=== PATIENT | female | born 1970 | race Caucasian/White ===

== ENCOUNTER → 2016-10-29 | Outpatient (CLI) | payer OTHER ==
[~2016-10-29] MED LIST: ALBU1NEB10 INH; ALBUAER2 INH; BUDE0.253 NEB; CALC500C70 PO; DICY10CA55 PO; EFFSR150 PO; EFFSR75 PO; EPP3/2 IM; MELO15TA4 PO; ONDA8TAB6 PO; PANT40TA PO; POLY335019 PO; PRLSR20 PO; PRVIN525X INH; SNG10 PO; VENL150C56 PO; VNTHFA/IN INH; ZOLP5TAB6 PO
--- NOTE | 2016-10-29 15:03 | DIAGNOSTIC IMAGING REPORT ---
ULTRASOUND OF THE CAROTID ARTERIES CLINICAL HISTORY: Visual changes COMPARISON STUDY: None. TECHNIQUE: Real-time, grayscale, and color Doppler sonography of the carotid arteries was performed. Imaging reviewed in the transverse and longitudinal planes. NASCET criteria was utilized for stenosis calcification. FINDINGS: There is very minimal atherosclerotic plaque present . The peak systolic velocity within the right internal carotid artery is 94 cm/sec. The systolic velocity ratio of right internal to common carotid artery is 1. The peak systolic velocity within the left internal carotid artery is 96 cm/sec. The systolic velocity ratio left internal to common carotid artery is 1.2. Antegrade flow is seen in the vertebral arteries. The external carotid arteries are patent. Blood pressure in the right arm measured 127 mm/Hg. Blood pressure in the left arm measured 128 mm/Hg. IMPRESSION: Normal study. No evidence of hemodynamic significant carotid stenosis Electronically signed by: Karson Rendon M.D. 10/29/2016 3:01 PM Dictated Date/Time: 10/29/2016 3:00 PM
== END | disposition home or self-care (01) ==
LOC: C.ULTRBC 13:06
PROVIDERS: ATTEND Family Medicine
DX: H53.9 Unspecified visual disturbance (principal)

== ENCOUNTER → 2017-03-25 | Outpatient (CLI) | payer OTHER | END | disposition home or self-care (01) | LOC: C.PAPS 09:25 | PROVIDERS: ATTEND Physician Assistant | DX: Z01.419 Encounter for gynecological examination (general) (routine) without abnormal findings (principal) ==

== ENCOUNTER 2017-05-19 11:39 | Emergency (ER) | payer OTHER ==
[~2017-05-19] VITALS: Ht 165.1 cm; Wt 78.0 kg
[~2017-05-19 11:39] MED LIST changes: -CALC500C70 PO; -EFFSR75 PO; -PANT40TA PO; -PRVIN525X INH; -VENL150C56 PO; -VNTHFA/IN INH
[2017-05-19 12:02] VITALS: TEMP 36.6; Ht 165.1 cm; Wt 78.0 kg
--- NOTE | 2017-05-19 12:43 | DIAGNOSTIC IMAGING REPORT ---
RIGHT THUMB 3 VIEWS HISTORY: R WRIST/THUMB PAIN COMPARISON: None. FINDINGS: There is no fracture or dislocation. Mild soft tissue swelling. No radiopaque foreign bodies. IMPRESSION: No fracture or dislocation within the right thumb. Electronically signed by: Levi Sykes M.D. 05/19/2017 12:42 PM Dictated Date/Time: 05/19/2017 12:40 PM
--- NOTE | 2017-05-19 12:45 | DIAGNOSTIC IMAGING REPORT ---
R WRIST W/NAVICULAR MIN 3 VIEWS CLINICAL HISTORY: 46 years-old Female presenting with R WRIST/THUMB PAIN. TECHNIQUE: Frontal, bilateral oblique, lateral, and scaphoid views of the right wrist were obtained. COMPARISON: 09/29/2010. FINDINGS: Radiocarpal, intercarpal, and carpometacarpal articulations intact. No acute fracture or malalignment. No significant degenerative change. No radiographic evidence of soft tissue swelling. IMPRESSION: No acute osseous injury of the right wrist. If there is continuing concern for a scaphoid fracture, MR is more sensitive for this diagnosis in the acute setting. Electronically signed by: Derian Seaman M.D. 05/19/2017 12:43 PM Dictated Date/Time: 05/19/2017 12:41 PM
[2017-05-19] MEDS ORDERED: TRAMADOL HCL 50 MG TAB PO STA (13:22)
[2017-05-19 13:36] VITALS: BP 129/58; PULSE 60; O2SAT 98
[2017-05-19] MEDS ORDERED: CALC500C70 PO (13:41)
[2017-05-19] MEDS ORDERED: PRVIN525X INH (13:41)
[2017-05-19] MEDS ORDERED: VENL150C56 PO (13:41)
[2017-05-19] MEDS ORDERED: EFFSR75 PO (13:41)
[2017-05-19] MEDS ORDERED: VNTHFA/IN INH (13:42)
[2017-05-19] MEDS ORDERED: PANT40TA PO (13:43)
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
== END 2017-05-19 14:28 | disposition home or self-care (01) ==
LOC: C.EDB 11:41 → C.EDD 14:28
DX: M25.531 Pain in right wrist (principal); W01.0XXA Fall on same level from slipping, tripping and stumbling without subsequent striking against object, initial encounter; J45.909 Unspecified asthma, uncomplicated; Z98.84 Bariatric surgery status; F32.9 Major depressive disorder, single episode, unspecified; K21.9 Gastro-esophageal reflux disease without esophagitis; E66.9 Obesity, unspecified; Z68.28 Body mass index [BMI] 28.0-28.9, adult; Z98.51 Tubal ligation status; Z80.9 Family history of malignant neoplasm, unspecified; Z83.3 Family history of diabetes mellitus; Z82.49 Family history of ischemic heart disease and other diseases of the circulatory system; Z79.899 Other long term (current) drug therapy

== ENCOUNTER → 2017-07-10 | Outpatient (CLI) | payer OTHER ==
[~2017-07-10] MED LIST changes: -ALBU1NEB10 INH; -ALBUAER2 INH; -BUDE0.253 NEB; +CALC500C70 PO; -EFFSR150 PO; +EFFSR75 PO; -ONDA8TAB6 PO; +PANT40TA PO; -PRLSR20 PO; +PRVIN525X INH; +VENL150C56 PO; +VNTHFA/IN INH
[2017-07-16 02:35] LABS: CHLAMYDIA TRACH RNA*** NOT DETECTED (NOT DETECTED); GC (NEIS GONORRHOEAE)RNA** NOT DETECTED (NOT DETECTED); TRICHOMONAS VAGINALIS RNA** DETECTED (NOT DETECTED)
== END | disposition home or self-care (01) ==
LOC: C.LABSPEC 13:32
PROVIDERS: ATTEND Physician Assistant
DX: A59.9 Trichomoniasis, unspecified (principal)

== ENCOUNTER → 2017-08-12 | Outpatient (CLI) | payer OTHER | END | disposition home or self-care (01) | LOC: C.LABSPEC 13:22 | PROVIDERS: ATTEND Physician Assistant | DX: A59.01 Trichomonal vulvovaginitis (principal) ==

== ENCOUNTER → 2017-10-03 | Outpatient (CLI) | payer OTHER ==
[~2017-10-03] MED LIST changes: +MELO-83 PO; -MELO15TA4 PO
== END | disposition home or self-care (01) ==
LOC: C.LABSPEC 11:04
PROVIDERS: ATTEND Physician Assistant Medical
DX: M54.6 Pain in thoracic spine (principal)

== ENCOUNTER → 2018-03-19 | Outpatient (CLI) | payer OTHER ==
[~2018-03-19] MED LIST changes: +CRFL PO; -MELO-83 PO; +ONDA4TAB10 SL; -PRVIN525X INH; -VNTHFA/IN INH
--- NOTE | 2018-03-19 09:36 | DIAGNOSTIC IMAGING REPORT ---
GI SERIES AND SMALL BOWEL CLINICAL HISTORY: 47 years-old Female with EPIGASTRIC PAIN. Acute epigastric abdominal pain with history of prior Kunal-en-Y gastric bypass. Inflammation with wall thickening seen at the gastrojejunostomy anastomotic site on comparison CT. The patient reportedly refused endoscopy. TECHNIQUE: A standard air contrast upper GI series was performed following administration of barium and effervescent crystals. Multiple spot fluoroscopic images were obtained and provided for review. Small bowel follow-through was also obtained with dedicated images of all 4 quadrants of the abdomen. COMPARISON STUDY: CT abdomen and pelvis 03/07/2018, upper GI series 03/18/2016 FLUOROSCOPY TIME: 3.3 minutes. A total of 30 images were submitted. FINDINGS: Superintendent Tests image demonstrates surgical clips about the midabdomen. Phleboliths are seen within the pelvis. The patient swallowed barium without difficulty. No aspiration was definitively visualized. The esophagus distended normally with barium and effervescent crystals. No strictures, mucosal ulcerations, or intraluminal mass lesions were identified involving the esophagus. There was no significant gastroesophageal reflux. Barium was seen to flow freely through the gastroesophageal junction. No active reflux was demonstrated with Valsalva maneuver. Evaluation of the stomach demonstrates no gastric mucosal irregularity or filling defect. Postoperative changes from Kunal-en-Y gastric bypass. No contrast extravasation to suggest dehiscence. No contrast extension into the excluded stomach or biliary limb. The gastrojejunostomy anastomotic site appears patent. Contrast flows freely into the small bowel. No bowel obstruction. Oral contrast reaches the cecum at 40 minutes. Freely movable bowel is noted within all four quadrants of the abdomen. IMPRESSION: 1. Unremarkable upper GI series and small bowel follow-through. 2. Postoperative changes from Kunal-en-Y gastric bypass without complication identified. Notably, the gastrojejunostomy anastomotic site appears patent. The above report was generated using voice recognition software. It may contain grammatical, syntax or spelling errors. Electronically signed by: Andrés Kennedy M.D. 03/19/2018 9:34 AM Dictated Date/Time: 03/19/2018 9:26 AM
== END | disposition home or self-care (01) ==
LOC: C.RAD 07:36
PROVIDERS: ATTEND Nurse Practitioner Family
DX: R10.13 Epigastric pain (principal); Z98.890 Other specified postprocedural states

== ENCOUNTER → 2018-04-02 | Outpatient (CLI) | payer OTHER | END | disposition home or self-care (01) | LOC: C.PAPS 10:50 | PROVIDERS: ATTEND Obstetrics & Gynecology | DX: Z12.4 Encounter for screening for malignant neoplasm of cervix (principal) ==

== ENCOUNTER 2019-06-07 16:19 | Observation (INO) ==
[2019-06-07] MEDS ORDERED: ACETAMINOPHEN 1,000 MG/100 ML VIAL IV STA (16:32)
[2019-06-07] MEDS ORDERED: ONDANSETRON INJ 2 MG/ML 2 ML VIAL IV STA (16:32)
[2019-06-07] MEDS ORDERED: FAMOTIDINE 20MG/5ML IV PUSH IV STA (16:32)
[2019-06-07] MEDS ORDERED: SODIUM CHLORIDE 0.9% 500 ML IV SCH (16:45)
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
[2019-06-07] MEDS ORDERED: PANTOprazole 80 MG in DEXTROSE 5% 100 ML IV ONE (17:00)
[2019-06-07 17:26] LABS: Basophils # (auto) 0.01 K/uL (0-0.2); Basophils % (auto) 0.2 %; Eosinophils # (auto) 0.05 K/uL (0-0.5); Eosinophils % (auto) 1.1 %; Hemoglobin 14.2 g/dL (12.0-16.0); Lymphocytes # (auto) 1.61 K/uL (1.2-3.4); Lymphocytes % (auto) 35.3 %; Mean Corpuscular Hgb Conc 33.8 g/dL (32-36); Mean Corpuscular Volume 91.7 fL (80-100); Mean Platelet Volume 10.7 fL (7.4-10.4); Monocytes # (auto) 0.37 K/uL (0.11-0.59); Monocytes % (auto) 8.1 %; Neutrophils # (auto) 2.52 K/uL (1.4-6.5); Neutrophils % (auto) 55.3 %; Platelet Count 209 K/uL (130-400); RDW Coefficient of Variation 13.7 % (11.5-14.5); RDW Standard Deviation 45.8 fL (36.4-46.3); Red Blood Count 4.58 M/uL (4.2-5.4); White Blood Count 4.56 K/uL (4.8-10.8)
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
--- NOTE | 2019-06-07 17:35 | XRay Report ---
XR chest 1V portable CLINICAL HISTORY: vomiting epigastric pain COMPARISON STUDY: 05/19/2019 FINDINGS: The cardiac and mediastinal contours are normal. There is no evidence of focal pulmonary co nsolidation. There is no evidence of failure. No pleural effusions are visualized.[No free intraperit hagan air is visualized. IMPRESSION: No active disease in the chest. Electronically signed by: Karson Rendon M.D. 06/07/2019 5:34 PM
[2019-06-07 17:43] LABS: Partial Thromboplastin Ratio 0.9; Prothrombin Time 10.5 Seconds (9.0-12.0)
[2019-06-07 17:46] LABS: Albumin Level 3.5 gm/dl (3.4-5.0); BUN Creatinine Ratio 14.8 (10-20); Calcium 8.5 mg/dl (8.5-10.1); Creatinine Clr Calc Pharmacy 93.3 ml/min; Est GFR (African American) 102.6; Est GFR (Non-African American) 88.5; Potassium 3.9 mmol/L (3.5-5.1)
[2019-06-07 17:49] LABS: Albumin Globulin Ratio 0.9 (0.9-2); Bilirubin,Total 0.5 mg/dl (0.2-1); Globulin 3.9 gm/dl (2.5-4.0); Total Protein 7.4 gm/dl (6.4-8.2)
[2019-06-07] MEDS: PANTOprazole 40 MG in DEXTROSE 5% 100 ML IV SCH ×2 (18:07→22:41)
[2019-06-07] MEDS ORDERED: SODIUM CHLORIDE 0.9% 250 ML IV PRN (19:12)
[2019-06-07] MEDS ORDERED: ACETAMINOPHEN 65 ML IV PRN (19:12)
[2019-06-07] MEDS: D5W AND NSS 1,000 ML IV SCH (19:29)
[2019-06-08] MEDS: PANTOprazole 40 MG in DEXTROSE 5% 100 ML IV SCH ×2 (03:44→08:49)
[2019-06-08 06:03] LABS: Hemoglobin 12.4 g/dL (12.0-16.0); Mean Corpuscular Hemoglobin 30.4 pg (25-34); Mean Corpuscular Hgb Conc 33.5 g/dL (32-36); Mean Corpuscular Volume 90.7 fL (80-100); Mean Platelet Volume 10.3 fL (7.4-10.4); Platelet Count 161 K/uL (130-400); RDW Coefficient of Variation 13.4 % (11.5-14.5); RDW Standard Deviation 44.4 fL (36.4-46.3); Red Blood Count 4.08 M/uL (4.2-5.4); White Blood Count 3.37 K/uL (4.8-10.8)
[2019-06-08 06:38] LABS: BUN Creatinine Ratio 9.1 (10-20); Calcium 7.8 mg/dl (8.5-10.1); Creatinine Clr Calc Pharmacy 99.5 ml/min; Est GFR (Non-African American) 95.8; Potassium 3.6 mmol/L (3.5-5.1)
[2019-06-08] MEDS: D5W AND NSS 1,000 ML IV SCH (08:08)
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
[2019-06-08] MEDS ORDERED: ePHEDrine sulfate 50 MG/ML AMP IV PRN (11:13)
[2019-06-08] MEDS ORDERED: ATROPINE SULFATE 0.1 MG/ML 10ML SYR IV PRN (11:13)
--- NOTE | 2019-06-08 12:28 | GI REPORT ---
Patient Name: Ana Maxwell Procedure Date: 06/08/2019 12:09 PM Date of : 1970 Admit Type: Inpatient Age: 48 Gender: Female Attending MD: Krunal Franco MD Procedure: Upper GI endoscopy Providers: Krunal Franco MD Referring MD: Antony Kenney Indications: Hematemesis Medicines: Monitored Anesthesia Care Complications: No immediate complications. Estimated blood loss: None. Estimated Blood Loss: Estimated blood loss: none. Procedure: Pre-Anesthesia Assessment: - Prior to the procedure, a History and Physical was performed, and patient medications, allergies and sensitivities were reviewed. The patient's tolerance of previous anesthesia was reviewed. - ASA Grade Assessment: III - A patient with severe systemic disease. After obtaining informed consent, the endoscope was passed under direct vision. Throughout the procedure, the patient's blood pressure, pulse, and oxygen saturations were monitored continuously. The Endoscope was introduced through the mouth, and advanced to the jejunum. The upper GI endoscopy was accomplished with ease. The patient tolerated the procedure well. Findings: The upper third of the esophagus, middle third of the esophagus and lower third of the esophagus were normal. The Z-line was regular and was found 36 cm from the incisors. Evidence of a gastric bypass was found. A gastric pouch with a small size was found. The staple line appeared intact. The gastrojejunal anastomosis was characterized by a clean based ulcer. This was traversed. Biopsies were taken from the gastric remnant with a cold forceps for Helicobacter pylori testing. The examined jejunum was normal. Impression: - Normal upper third of esophagus, middle third of esophagus and lower third of esophagus. - Z-line regular, 36 cm from the incisors. - Gastric bypass with a small-sized pouch and intact staple line. Gastric biopsy for H pylori obtained. - Anastomotic ulcer with clean base. - Normal examined jejunum. Recommendation: - [facility] care. Krunal Franco M.D. Krunal Franco MD 06/08/2019 12:28:20 PM This report has been signed electronically. Note Initiated On: 06/08/2019 12:09 PM Number of Addenda: 0 I attest to the content of the Intraoperative Record and orders documented therein, exceptions below {[id number]}
[2019-06-08] MEDS ORDERED: PROPOFOL IV EMULSION 10 MG/ML 20 ML VIAL IV ONE (12:40)
[2019-06-08] MEDS ORDERED: LIDOCAINE HCL 2% 2 ML VIAL/AMP(20MG/ML) INFIL ONE (12:40)
--- NOTE | 2019-06-08 15:10 | Hospitalist Progress Note ---
Date of Service June 08, 2019 Assessment & Plan (1) GI bleed: (2) Hematemesis: (3) Bypass gastroenterostomy: Upper GI bleed likely secondary to anastomotic ulcer Pt is 48 y/o F with PMH obesity s/p RYGB with gastrojejunal anastomotic stricture, GERD, depression presented with c/o hematemesis x 2 days. Last episode hematemesis earlier today after eating. No vomiting while in ER. In ER vitals stable. H/H: 14/42, BUN: 12, Cr: 0.79 Patient placed on Protonix drip Hemoglobin decreased from 14-12 No recurrence of hematemesis while admitted Status post EGD Dr. Franco, patient evaluated as well by KRISTEN Sierra EGD: - Normal upper third of esophagus, middle third of esophagus and lower third of esophagus. - Z-line regular, 36 cm from the incisors. - Gastric bypass with a small-sized pouch and intact staple line. Gastric biopsy for H pylori obtained. - Anastomotic ulcer with clean base. - Normal examined jejunum. --GI recommending Protonix 40 mg twice a day Continue until follow-up with GI clinic in 2 weeks --Follow-up with primary care physician next week Dietary modifications, patient denies smoking or alcohol use (4) Depression: Stable, Continue usual medications Discharge to home today Follow-up with primary care physician next week as outlined in the discharge instructions Follow-up with gastroneurologist in 2 weeks Case discussed with patient in detail All questions answered She is understanding, comfortable, agreeable with the plan of care Subjective Follow-up for hematemesis Status post EGD Seen sitting up in bed, comfortable, not in distress In good spirits States she feels much better overall Tolerating clear liquids well Denies abdominal pain, nausea, shortness of breath, chest pain No other symptoms States she is ready and would like to be discharged today Review of Systems Review of Systems: All systems reviewed & are unremarkable except as noted in HPI & below Physical Exam Physical Exam: General- oriented x 3, not in distress, speaks in sentences with no effort or accessory muscle use Eyes- anicteric Neck- no JVD Lungs- clear breath sounds bilaterally, no rales/wheezes Heart- normal rate, regular rhythm; no murmurs Abdomen- normal bowel sounds, nondistended, soft, nontender Extremities- no pretibial edema, no calf tenderness Neuro- alert, oriented x 3; no gross focal neurologic deficits Skin- warm & dry Results & Data Vital Signs (Past 12 Hours) Vital Signs Temp Pulse Resp BP Pulse Ox 06/08/19 12:56 45 L 16 139/75 100 06/08/19 12:41 48 L 16 140/69 100 06/08/19 12:26 36.5 C 61 16 146/73 H 100 06/08/19 10:54 36.5 C 48 L 20 135/60 100 06/08/19 07:44 36.8 C 53 L 18 97/59 L 97 06/08/19 04:36 36.6 C 68 18 98/46 L 92 06/08/19 04:00 36.4 C L 60 20 96/63 L 99 Laboratory Results Laboratory Results - last 24 hr 06/07/19 06/07/19 06/07/19 17:15 17:15 17:15 WBC 4.56 L RBC 4.58 Hgb 14.2 Hct 42.0 MCV 91.7 MCH 31.0 MCHC 33.8 RDW Std Deviation 45.8 RDW Coeff of Salima 13.7 Plt Count 209 MPV 10.7 H Immature Gran % (Auto) 0.0 Neut % (Auto) 55.3 Lymph % (Auto) 35.3 [place] % (Auto) 8.1 Eos % (Auto) 1.1 Baso % (Auto) 0.2 Immature Gran # (Auto) 0.00 Neut # (Auto) 2.52 Lymph # (Auto) 1.61 [place] # (Auto) 0.37 Eos # (Auto) 0.05 Baso # (Auto) 0.01 PT 10.5 INR 1.0 APTT 25.0 PTT Ratio 0.9 Sodium 138 Potassium 3.9 Chloride 106 Carbon Dioxide 26 Anion Gap 6.0 BUN 12 Creatinine 0.79 Est Cr Clr Drug Dosing 93.3 Est GFR ( Amer) 102.6 Est GFR (Non-Af Amer) 88.5 BUN/Creatinine Ratio 14.8 Glucose 82 Calcium 8.5 Magnesium 2.0 Total Bilirubin 0.5 AST 13 L ALT 14 Alkaline Phosphatase 52 Total Protein 7.4 Albumin 3.5 Globulin 3.9 Albumin/Globulin Ratio 0.9 Lipase 110 Blood Type Antibody Screen Crossmatch 06/07/19 06/08/19 06/08/19 17:15 05:40 05:40 WBC 3.37 L RBC 4.08 L Hgb 12.4 Hct 37.0 MCV 90.7 MCH 30.4 MCHC 33.5 RDW Std Deviation 44.4 RDW Coeff of Salima 13.4 Plt Count 161 MPV 10.3 Immature Gran % (Auto) Neut % (Auto) Lymph % (Auto) [place] % (Auto) Eos % (Auto) Baso % (Auto) Immature Gran # (Auto) Neut # (Auto) Lymph # (Auto) [place] # (Auto) Eos # (Auto) Baso # (Auto) PT INR APTT PTT Ratio Sodium 139 Potassium 3.6 Chloride 108 H Carbon Dioxide 26 Anion Gap 5.0 BUN 7 D Creatinine 0.74 Est Cr Clr Drug Dosing 99.5 Est GFR ( Amer) 111.0 Est GFR (Non-Af Amer) 95.8 BUN/Creatinine Ratio 9.1 L Glucose 84 Calcium 7.8 L Magnesium Total Bilirubin AST ALT Alkaline Phosphatase Total Protein Albumin Globulin Albumin/Globulin Ratio Lipase Blood Type O Negative Antibody Screen NEGATIVE Crossmatch See Detail (1) GI bleed GI bleed type/associated pathology: unspecified gastrointestinal hemorrhage type Qualified Code(s): K92.2 - Gastrointestinal hemorrhage, unspecified (2) Hematemesis Nausea presence: with nausea Qualified Code(s): K92.0 - Hematemesis
--- NOTE | 2019-06-08 15:15 | Anesthesiology Progress Note ---
Date of Service June 08, 2019 Anesthesia Post Procedure Vital Signs Vital Signs: Temp Pulse Pulse Resp BP BP Pulse Ox 06/08/19 12:56 45 L 16 139/75 100 06/08/19 12:41 48 L 16 140/69 100 06/08/19 12:26 36.5 C 61 16 146/73 H 100 06/08/19 10:54 36.5 C 48 L 20 135/60 100 06/08/19 07:44 36.8 C 53 L 18 97/59 L 97 06/08/19 04:36 36.6 C 68 18 98/46 L 92 06/08/19 04:00 36.4 C L 60 20 96/63 L 99 06/08/19 01:30 111/67 06/08/19 00:59 55 L 06/07/19 23:54 36.6 C 60 18 96/60 L 98 06/07/19 19:22 53 L 06/07/19 19:16 36.4 C L 54 L 16 145/81 H 100 06/07/19 18:01 58 L 19 116/59 L 100 06/07/19 18:00 55 L 16 100 06/07/19 17:50 60 16 99 06/07/19 17:40 55 L 19 99 06/07/19 17:31 61 17 132/63 100 06/07/19 17:30 57 L 14 99 06/07/19 17:20 56 L 18 97 06/07/19 17:19 60 17 98 06/07/19 17:14 56 L 19 06/07/19 16:20 36.7 C 66 18 120/82 95 Pain Intensity Abdomen: Pain Intensity: 2 Transfer of Care Handoff Completed per policy Notes Mental Status: alert / awake / arousable Patient Amnestic to Procedure: Yes Nausea / Vomiting: adequately controlled Pain: adequately controlled Airway Patency, RR, SpO2: stable & adequate BP & HR: stable & adequate Hydration State: stable & adequate Anesthetic Complications: no major complications apparent and Pt Satisfied with anesthetic care
--- NOTE | 2019-06-08 15:21 | Discharge Summary ---
Date of Service June 08, 2019 Admission HPI Per Admitting Provider Pt is 48 y/o F with PMH obesity s/p RYGB with gastrojejunal anastomotic stricture, GERD, depression presented to ER with c/o hematemesis. She was referred to hospital from GI office today. She reports nausea and vomiting x3 days. States 2 days ago noticed red blood in vomit. Reports 3 episodes of hematemesis yesterday. And reports vomited twice today with one episode of hematemesis after eating mashed potatoes. Also complaining of upper abdominal aching for the past 2 to 3 days. Reports loose BMs that she describes as reddish-brown in coloration. Reports some lightheadedness with walking today. Denies any syncope. Patient denies NSAID use, alcohol use. Outpatient labs today with H/H: 13.5/41.3, BUN: 12, Cr: 0.9. Denies fever/chills, diaphoresis, PAREDES, vision changes, neck pain, CP, SOB, orthopnea, palpitations, cough, sore throat, choking, otalgia, rhinorrhea, paresthesias, weakness, extremity weakness, extremity edema, rashes, urinary symptoms. History EGD 09/08/2018 showed nonbleeding jejunal ulcer typical of post bypass ischemic ulcer History EGD 10/21/2018: Z-line regular, 38 cm from incisors. Gastric bypass with small size patch and intact staple line. Gastrojejunal anastomosis estrella cterized by moderate stenosis. Dilated. Admission Exam Per Admitting Provider General: no distress, WDWN Head: normocephalic, atraumatic Eyes: conjunctiva non-injected, anicteric ENT: normal inspection external ears, nose, mucous membranes moist Neck: supple, trachea midline, non-tender Lungs: clear, no respiratory distress, no wheezing/rhonchi/rales CV: RRR, no murmur, no JVD, no pretibial edema Abd: normal BS, soft, +mild tenderness to palpation epigastric region without rebound or guarding Ext: no cyanosis, no calf tenderness Neuro: A&O x 3, no focal deficits noted, normal affect Skin: warm, dry Principal Diagnosis Upper GI bleed secondary to anastomotic ulcer, history of gastric bypass surgery Discharge Exam General- oriented x 3, not in distress, speaks in sentences with no effort or accessory muscle use Eyes- anicteric Neck- no JVD Lungs- clear breath sounds bilaterally, no rales/wheezes Heart- normal rate, regular rhythm; no murmurs Abdomen- normal bowel sounds, nondistended, soft, nontender Extremities- no pretibial edema, no calf tenderness Neuro- alert, oriented x 3; no gross focal neurologic deficits Skin- warm & dry Discharge Data Allergies Allergy/AdvReac Type Severity Reaction Status Date / Time bee venom protein (honey bee) Allergy Severe TROUBLE Verified 06/08/19 10:52 BREATHING. USES EPI-PEN FOR THIS adhesive Allergy Mild RASH OVER Verified 06/08/19 10:52 BODY WITH PAPER TAPE tetanus immune globulin Allergy Mild NAUSEATED, Verified 06/08/19 10:52 RASH naproxen AdvReac Mild NAUSEA/VOMI Verified 06/08/19 10:52 TING Penicillins AdvReac Mild NAUSEA AND Verified 06/08/19 10:52 VOMITING Consultations 06/07/19 16:41 ED Decision to Admit Stat 06/07/19 19:12 Consult Gastroenterology Routine Procedures Performed Operation Date: 06/08/19 08:30 Actual Procedures p EGD Biopsy Cytology - Krunal Franco MD Hospital Course (1) GI bleed: (2) Hematemesis: (3) Bypass gastroenterostomy: Upper GI bleed likely secondary to anastomotic ulcer, history of gastric bypass Pt is 48 y/o F with PMH obesity s/p RYGB with gastrojejunal anastomotic stricture, GERD, depression presented with c/o hematemesis x 2 days. Last episode hematemesis earlier today after eating. No vomiting while in ER. In ER vitals stable. H/H: 14/42, BUN: 12, Cr: 0.79 Patient placed on Protonix drip Hemoglobin decreased from 14-> 12 No recurrence of hematemesis while admitted Status post EGD Dr. Franco, patient evaluated as well by KRISTEN Sierra EGD: - Normal upper third of esophagus, middle third of esophagus and lower third of esophagus. - Z-line regular, 36 cm from the incisors. - Gastric bypass with a small-sized pouch and intact staple line. Gastric biopsy for H pylori obtained. - Anastomotic ulcer with clean base. - Normal examined jejunum. --GI recommending Protonix 40 mg twice a day Continue until follow-up with GI clinic in 2 weeks --Follow-up with primary care physician next week Dietary modifications, patient denies smoking or alcohol use Repeat CBC upon follow-up with primary care physician this coming week (4) Depression: Stable, Continue usual medications Discharge to home today Follow-up with primary care physician on Friday as outlined in the discharge in structions Follow-up with GI clinic in 2 weeks Total Time Total Time Spent Total Time Spent (In Minutes): 35 minutes Discharge Plan Discharge Items Patient Disposition: Home - Self-Care Reason For Visit: GI BLEED Discharge Diagnosis: UPPER GI BLEED LIKELY SECONDARY TO ANASTOMOTIC ULCER, HISTORY OF GASTRIC BYPASS Activity: Resume your previous activity Activity Comment: Resume activity gradually as tolerated Lifting: Wait until after follow-up appointment Exercise/Sports: Wait until after follow-up appointment Non-emergency contact: Primary Care Provider and Bench Mover Call non-emergency contact if: you have any medication questions, your symptoms worsen and you have a fever Follow-up/Referrals: Mattie Marie MD [Physician] - 06/11/19 10:05 am Diet: Heart Healthy and Low Fiber Addtl Attending Provider Instructions: Please follow-up with Dr. Urban (associate of Dr. Méndez) on Friday, June 11, 2019 at 10:05 AM. Follow-up with gastroenterology clinic in 2 weeks. Please call the office for an appointment. Maintain soft diet for at least 1 week. Small, frequent meals. Drink plenty fluids. Call primary care physician or return to the ER immediately if with recurrence or worsening symptoms. Pending Studies at Discharge: No Stand-Alone Forms: My [facility] Medications and DC Order Prescriptions: Continued polyethylene glycol 3350 [Miralax] 17 gram Powder In Packet 17 g PO DAILY PRN (Reason: Constipation) RF: 0 sertraline 100 mg Tablet 200 mg PO DAILY RF: 0 famotidine 40 mg tablet 40 mg PO HS PRN (Reason: Heartburn) RF: 0 pantoprazole [Protonix] 40 mg Tablet,Delayed Release (Dr/Ec) 40 mg PO BID RF: 0 duloxetine 20 mg capsule,delayed release(DR/EC) 20 mg PO QAM RF: 0 multivitamin Tablet 1 tab PO DAILY RF: 0 thiamine HCl (vitamin B1) 100 mg Tablet 100 mg PO DAILY RF: 0 cyanocobalamin (vitamin B-12) 1,000 mcg/mL Solution 1,000 mcg IM Q4WK RF: 0 Discharge Orders: Discharge Order (Routine); Ordered 06/08/19 Ordered By: Antony Kenney Admission Data Admit Date/Time: 06/07/19 17:31 Attending Provider: Antony Kenney Admit Provider: Antony Kenney Primary Care Provider: Francine Méndez Other Providers: Antony Kenney ; Krunal Franco Other Interventions: Discharge Summary Assessment (RN) Last Done: 06/08/19 13:04
== END 2019-06-08 15:58 | disposition home or self-care (01) ==
LOC: ED 16:19 → 2N 16:19